=== PATIENT | female | born 1955 | race Caucasian/White ===

== ENCOUNTER 2017-07-28 12:44 | Emergency (ER) | payer OTHER ==
[~2017-07-28] VITALS: Ht 160 cm; Wt 80.2 kg
[~2017-07-28 12:44] MED LIST: BYSTOLIC5 MG PO; EXFORGE HCT 101 EAC2 PO; LIPITOR20 MG PO
[2017-07-28 13:23] LABS: BASOPHIL COUNT 0.1 K/uL (0-0.1); EOSINOPHIL (%) 0.4 % (0-5); HEMATOCRIT 45.5 % (36.0-46.0); IMMATURE GRANULOCYTE (%) 0.3 % (0.0-0.7); INSTRUMENT ABS NEUTROPHIL CT 4.6 K/uL; LYMPHOCYTE COUNT 2.4 K/uL (1.0-2.8); MCH 30.8 PG (29.0-34.0); MCHC 34.1 G/DL (30.0-36.0); MCV 90.3 FL (83-99); MEAN PLAT.VOLUME 10.4 uM^3 (9.5-12.4); MONOCYTE (%) 9.2 % (3-12); MONOCYTE COUNT 0.7 K/uL (0-0.8); NEUTROPHIL COUNT 4.6 K/uL (1.8-6.4); PLATELET COUNT 209 K/uL (156-360); RBC DIS.WIDTH-CV 12.3 % (11.8-14.6); RED BLOOD COUNT 5.04 M/uL (3.80-5.20); WHITE BLOOD COUNT 7.8 K/uL (4.1-10.2)
[2017-07-28 13:31] LABS: CHLORIDE 109 mEq/L (99-109); POTASSIUM 3.4 mEq/L (3.7-5.4)
[2017-07-28 13:32] LABS: SODIUM 145 mEq/L (136-147)
[2017-07-28 13:34] LABS: GLUCOSE 121 mg/dL (70-99)
[2017-07-28 13:35] LABS: ANION GAP 9 MEQ/L (2-14); INTER. NORMALIZED RATIO 1.6
[2017-07-28 13:36] LABS: TOTAL BILIRUBIN 0.6 mg/dL (0.0-1.0)
[2017-07-28 13:37] LABS: ALKALINE PHOSPHATASE 70 IU/L (3-129); PTT 40.7 SEC (25-37)
[2017-07-28 13:38] LABS: GFR ESTIMATE (CALCULATED) > 59 mL/min/
[2017-07-28 13:39] LABS: DIRECT BILIRUBIN 0.2 mg/dL (0.0-0.3); UREA NITROGEN (BUN) 18 mg/dL (9-23)
[2017-07-28 13:41] LABS: LIPASE 13 U/L (1.0-51.0)
[2017-07-28 13:43] LABS: TROP-I INTERPRETATION NEGATIVE; TROPONIN-I < 0.01 ng/mL (0.0-0.30)
[2017-07-28 15:18] LABS: ADD MIUA? YES; BILIRUBIN NEGATIVE; BLOOD SMALL; COLOR YELLOW ((YELLOW)); GLUCOSE (STRIP) 50; KETONES NEGATIVE; LEUKOCYTES LARGE; NITRITE NEGATIVE; PROTEIN (STRIP) NEGATIVE; SPECIFIC GRAVITY 1.017 (1.000-1.030); UROBILINOGEN 0.2 MG/DL (0.2-1.0)
[2017-07-28 15:23] LABS: BACTERIA 1+ /HPF; EPITHELIAL CELLS RARE /HPF; HYALINE CASTS 0-5 /LPF; MUCUS TRACE /LPF; UCUL ADDED? YES
[2017-07-28] MEDS ORDERED: KEFLEX500 MG PO (16:35)
[2017-07-28 17:07] VITALS: BP 122/67
== END 2017-07-28 17:08 | disposition home or self-care (01) ==
LOC: EME 12:44
PROVIDERS: Emergency Medicine
DX: R00.2 Palpitations (principal); N39.0 Urinary tract infection, site not specified; R51 Headache; M54.2 Cervicalgia; I48.91 Unspecified atrial fibrillation; Z79.01 Long term (current) use of anticoagulants; I10 Essential (primary) hypertension; Z87.891 Personal history of nicotine dependence
CPT/HCPCS: 71010; 80048; 80076; 81003; 83605; 83690; 83880; 84484; 85025; 85610; 85730; 87086; 93005; 99281; 99284; J7030

== ENCOUNTER 2018-05-02 09:47 | Inpatient (IN) | payer OTHER ==
[~2018-05-02] VITALS: Ht 160 cm; Wt 87.9 kg
[~2018-05-02 09:47] MED LIST changes: +KEFLEX500 MG PO
[2018-05-02 10:27] LABS: BASOPHIL (%) 0.4 % (0-1); EOSINOPHIL (%) 0.7 % (0-5); EOSINOPHIL COUNT 0.1 K/uL (0-0.3); HEMATOCRIT 33.4 % (36.0-46.0); HEMOGLOBIN 10.6 G/DL (11.9-15.5); IMMATURE GRANULOCYTE (%) 0.3 % (0.0-0.7); LYMPHOCYTE (%) 16.9 % (15-42); LYMPHOCYTE COUNT 1.2 K/uL (1.0-2.8); MCHC 31.7 G/DL (30.0-36.0); MCV 82.1 FL (83-99); MONOCYTE COUNT 0.4 K/uL (0-0.8); NEUTROPHIL (%) 75.7 % (45-76); NEUTROPHIL COUNT 5.3 K/uL (1.8-6.4); PLATELET COUNT 199 K/uL (156-360); RBC DIS.WIDTH-CV 13.6 % (11.8-14.6); RBC DIS.WIDTH-SD 40.5 % (39-53); RED BLOOD COUNT 4.07 M/uL (3.80-5.20)
[2018-05-02 10:31] LABS: INTER. NORMALIZED RATIO 2.5
[2018-05-02 10:34] LABS: PTT 36.8 SEC (25-37)
[2018-05-02 10:42] LABS: CHLORIDE 114 mEq/L (99-109); POTASSIUM 3.7 mEq/L (3.7-5.4); SODIUM 144 mEq/L (136-147)
[2018-05-02 10:44] LABS: GLUCOSE 137 mg/dL (70-99)
[2018-05-02 10:46] LABS: TROP-I INTERPRETATION NEGATIVE; TROPONIN-I < 0.01 ng/mL (0.0-0.30)
[2018-05-02 10:48] LABS: CREATININE 0.8 mg/dL (0.6-1.3); GFR ESTIMATE (CALCULATED) > 59 mL/min/; UREA NITROGEN (BUN) 17 mg/dL (9-23)
[2018-05-02] MEDS ORDERED: XARELTO20 MG PO (14:58)
[2018-05-02] MEDS ORDERED: DILTIAZEM 24HR120 MG PO (14:59)
[2018-05-02] MEDS ORDERED: SERTRALINE HCL50 MG PO (14:59)
[2018-05-02] MEDS ORDERED: ATORVASTATIN CA80 MG PO (15:00)
[2018-05-02] MEDS ORDERED: TRAZODONE HCL50 MG PO (15:00)
[2018-05-02] MEDS ORDERED: OMEPRAZOLE40 M1 PO (15:00)
[2018-05-02] MEDS ORDERED: FISH OIL 1,0001 EAC7 PO (15:02)
[2018-05-02] MEDS ORDERED: LO-DOSE ASPIRIN81 M1 PO (15:02)
[2018-05-02] MEDS ORDERED: CALCIUM500 M4 PO (15:02)
[2018-05-02 17:45] VITALS: BP 134/90
[2018-05-02 20:28] VITALS: BP 123/83
[2018-05-02 23:39] VITALS: BP 117/88
[2018-05-03 03:38] VITALS: BP 132/96
[2018-05-03 05:21] LABS: HEMATOCRIT 30.2 % (36.0-46.0); HEMOGLOBIN 9.5 G/DL (11.9-15.5); MCH 25.7 PG (29.0-34.0); MCHC 31.5 G/DL (30.0-36.0); MCV 81.8 FL (83-99); PLATELET COUNT 193 K/uL (156-360); RBC DIS.WIDTH-CV 13.8 % (11.8-14.6); RED BLOOD COUNT 3.69 M/uL (3.80-5.20); WHITE BLOOD COUNT 7.1 K/uL (4.1-10.2)
[2018-05-03 05:43] LABS: CHLORIDE 107 MEQ/L (99-109); CREATININE 0.8 MG/DL (0.6-1.3); GFR ESTIMATE (CALCULATED) > 59 mL/min/; GLUCOSE 111 mg/dL (70-99); POTASSIUM 3.2 MEQ/L (3.7-5.4); SODIUM 144 MEQ/L (136-147); UREA NITROGEN (BUN) 15 mg/dL (9-23)
[2018-05-03 07:12] VITALS: BP 120/92
[2018-05-03 09:27] LABS: IRON 35 MCG/DL (35-150); MAGNESIUM 1.9 mg/dl (1.3-2.7); TRANSFERRIN (TIBC) 326.8 mg/dL (215-380); TRANSFERRIN SATUR. 11 % (20-55)
[2018-05-03 10:00] LABS: FERRITIN 9 NG/ML (10-291)
[2018-05-03 10:23] LABS: ABSOLUTE RETICULOCYTE CT. 0.09 M/uL (0.02-0.08); IMM.RETIC FRACTION 28.6 % (3-19); RETIC HGB EQUIVALENT 25.5 (28-36); RETICULOCYTE COUNT 2.5 % (0.5-1.8)
[2018-05-03 11:00] LABS: FOLIC ACID (FOLATE) > 22.0 NG/ML (5.0-22.0)
[2018-05-03 11:14] VITALS: BP 133/72
[2018-05-03 14:19] LABS: HEMOGLOBIN A1c (GLYCOHEMOGLOB) 6.6 % (Below 5.7)
[2018-05-03 15:06] VITALS: BP 127/71
[2018-05-03 20:00] VITALS: BP 159/69
[2018-05-04 00:28] VITALS: BP 131/79
[2018-05-04 05:13] VITALS: BP 150/85
[2018-05-04 05:42] LABS: BASOPHIL (%) 0.4 % (0-1); EOSINOPHIL (%) 0.9 % (0-5); EOSINOPHIL COUNT 0.1 K/uL (0-0.3); HEMATOCRIT 33.7 % (36.0-46.0); HEMOGLOBIN 10.5 G/DL (11.9-15.5); IMMATURE GRANULOCYTE (%) 0.3 % (0.0-0.7); LYMPHOCYTE (%) 18.8 % (15-42); LYMPHOCYTE COUNT 1.7 K/uL (1.0-2.8); MCH 25.2 PG (29.0-34.0); MCHC 31.2 G/DL (30.0-36.0); MONOCYTE (%) 11.2 % (3-12); NEUTROPHIL (%) 68.4 % (45-76); NEUTROPHIL COUNT 6.3 K/uL (1.8-6.4); PLATELET COUNT 223 K/uL (156-360); RBC DIS.WIDTH-CV 13.5 % (11.8-14.6); RBC DIS.WIDTH-SD 39.5 % (39-53); RED BLOOD COUNT 4.16 M/uL (3.80-5.20); WHITE BLOOD COUNT 9.2 K/uL (4.1-10.2)
[2018-05-04 06:06] LABS: ALBUMIN 3.5 G/DL (3.2-4.8); ALKALINE PHOSPHATASE 76 IU/L (3-129); ALT (GPT) 51 IU/L (3-49); AST (GOT) 24 IU/L (2-34); CHLORIDE 107 MEQ/L (99-109); CREATININE 0.8 MG/DL (0.6-1.3); GFR ESTIMATE (CALCULATED) > 59 mL/min/; GLUCOSE 116 mg/dL (70-99); POTASSIUM 3.4 MEQ/L (3.7-5.4); SODIUM 144 MEQ/L (136-147); TOTAL BILIRUBIN 0.7 MG/DL (0.0-1.0); TOTAL PROTEIN 5.6 G/DL (6.4-8.3); UREA NITROGEN (BUN) 19 mg/dL (9-23)
[2018-05-04 09:06] VITALS: BP 123/69
[2018-05-04 11:03] VITALS: BP 122/80
[2018-05-04 15:52] VITALS: BP 107/58
[2018-05-04 21:53] VITALS: BP 93/62
[2018-05-05] VITALS (7 sets, daily range): BP systolic 107–122; BP diastolic 54–86
[2018-05-05 05:25] LABS: BASOPHIL (%) 0.7 % (0-1); BASOPHIL COUNT 0.1 K/uL (0-0.1); EOSINOPHIL (%) 1.3 % (0-5); EOSINOPHIL COUNT 0.1 K/uL (0-0.3); HEMATOCRIT 33.9 % (36.0-46.0); HEMOGLOBIN 10.5 G/DL (11.9-15.5); IMMATURE GRANULOCYTE (%) 0.3 % (0.0-0.7); LYMPHOCYTE (%) 30.8 % (15-42); LYMPHOCYTE COUNT 2.1 K/uL (1.0-2.8); MCH 25.4 PG (29.0-34.0); MCV 81.9 FL (83-99); MONOCYTE (%) 11.9 % (3-12); MONOCYTE COUNT 0.8 K/uL (0-0.8); NEUTROPHIL COUNT 3.8 K/uL (1.8-6.4); PLATELET COUNT 220 K/uL (156-360); RBC DIS.WIDTH-CV 13.5 % (11.8-14.6); RBC DIS.WIDTH-SD 39.9 % (39-53); RED BLOOD COUNT 4.14 M/uL (3.80-5.20); WHITE BLOOD COUNT 6.9 K/uL (4.1-10.2)
[2018-05-05 05:42] LABS: CHLORIDE 106 MEQ/L (99-109); CREATININE 0.4 MG/DL (0.6-1.3); GFR ESTIMATE (CALCULATED) > 59 mL/min/; GLUCOSE 112 mg/dL (70-99); POTASSIUM 3.4 MEQ/L (3.7-5.4); SODIUM 144 MEQ/L (136-147); UREA NITROGEN (BUN) 16 mg/dL (9-23)
[2018-05-06 03:15] VITALS: BP 101/77
[2018-05-06 08:00] VITALS: BP 96/71
[2018-05-06 10:02] LABS: CHLORIDE 109 mEq/L (99-109); POTASSIUM 3.9 mEq/L (3.7-5.4); SODIUM 144 mEq/L (136-147)
[2018-05-06 10:05] LABS: GLUCOSE 180 mg/dL (70-99)
[2018-05-06 10:08] LABS: CREATININE 0.7 mg/dL (0.6-1.3); GFR ESTIMATE (CALCULATED) > 59 mL/min/
[2018-05-06 10:09] LABS: UREA NITROGEN (BUN) 14 mg/dL (9-23)
[2018-05-06 10:18] VITALS: BP 117/74
[2018-05-06 11:35] VITALS: BP 110/68
[2018-05-06] MEDS ORDERED: DILTIAZEM 24HR240 MG PO (11:53)
[2018-05-06] MEDS ORDERED: CYANOCOBALAM1000 MCG PO (11:53)
[2018-05-06] MEDS ORDERED: FERROUS SULFAT325 MG PO (11:53)
[2018-05-06] MEDS ORDERED: SOTALOL80 MG PO (11:53)
== END 2018-05-06 13:10 | disposition home or self-care (01) | DRG 310 ==
LOC: EME 09:47 → 4EAST 14:07 → EDOF 14:07 → ENRESERV 14:13 → 4EAST 16:20 → EDOF 16:27 → ENRESERV 16:40 → 4EAST 17:13 → ENRESERV 05-03 07:57 → CANRESERV 05-03 07:57 → 4EAST 05-06 13:10
PROVIDERS: Emergency Medicine; Hospitalist; Nurse Practitioner Family
DX: I48.0 Paroxysmal atrial fibrillation (principal); I50.9 Heart failure, unspecified; E87.6 Hypokalemia; I11.0 Hypertensive heart disease with heart failure; D64.9 Anemia, unspecified; E78.00 Pure hypercholesterolemia, unspecified; E66.9 Obesity, unspecified; Z79.82 Long term (current) use of aspirin; Z79.899 Other long term (current) drug therapy; Z68.36 Body mass index [BMI] 36.0-36.9, adult; Z79.01 Long term (current) use of anticoagulants; R09.89 Other specified symptoms and signs involving the circulatory and respiratory systems; K22.70 Barrett's esophagus without dysplasia
CPT/HCPCS: 71045; 80048; 80053; 82607; 82728; 82746; 83036; 83540; 83735; 83880; 84466; 84484; 85025; 85027; 85046; 85610; 85730; 93005; 93306; 94799; 99281; 99284; J1940; J7050